=== PATIENT | male | born 1970 | race Caucasian/White ===

== ENCOUNTER 2018-12-17 14:43 | Emergency (ER) | payer MEDICARE, OTHER ==
[~2018-12-17] VITALS: Ht 188 cm; Wt 80.0 kg
[~2018-12-17 14:43] MED LIST: ATEN50TA PO; BUPR150T18 PO; LISI30TA47 PO; METF-480 PO; OLAN10VI3 IM; OLAN5TAB5 PO; PIOG30TA71 PO; PROLIX5 PO; [UNRECOGNIZED DRUG - CODE] PO
[2018-12-17 14:50] VITALS: BP 117/60; PULSE 65; RESP 20; Ht 188 cm; Wt 80.0 kg
--- NOTE | 2018-12-17 15:32 | ERD ---
ER Documentation Chief Complaint Chief Complaint LEFT LEG PAIN HPI Patient is a 48 years old male with PMHx of psychiatric illness presenting to the clinic for left lower extremity erythema and pruritus since yesterday. Patient reports rash is painful. Patient is also reporting of cauliflower like lesion on shaft of penis. Penis denies penile discharge and dysuria. ROS All systems reviewed and are negative except as per history of present illness. Medications Home Meds Active Scripts Permethrin* (Elimite*) 5% Cr, 1 APPLIC TOP ONCE for 7 Days, TUB Prov:EMILY BORREGO PA-C 12/17/18 Imiquimod (Imiquimod) 5% Cream.pack, 1 PACKET TOP BID for 14 Days, #1 PACKET Apply twice weekly to afected area. Prov:EMILY BORREGO PA-C 12/17/18 Cephalexin* (Keflex*) 500 Mg Capsule, 500 MG PO QID for 5 Days, CAP Prov:EMILY BORREGO PA-C 12/17/18 Sulfamethoxazole/Trimethoprim* (Bactrim Ds* Tablet) 1 Each Tablet, 1 TAB PO BID for 10 Days, TAB Prov:EMILY BORREGO PA-C 12/17/18 Reported Medications Olanzapine (Zyprexa) 10 Mg Soln, 10 MG IM HS 04/19/13 Fluphenazine Hcl* (Prolixin*) 5 Mg Tab, 10 MG PO BID 04/19/13 Metformin* (Glucophage*) 850 Mg Tablet, 850 MG PO BID 04/19/13 Olanzapine* (Zyprexa*) 5 Mg Tablet, 5 MG PO AM 04/19/13 Bupropion Hcl* (Bupropion Hcl SR*) 150 Mg Tablet.er, 100 MG PO AM 04/19/13 Lisinopril* (Lisinopril*) 30 Mg Tablet, 40 MG PO DAILY 04/19/13 Atenolol* (Atenolol*) 50 Mg Tablet, 50 MG PO AM 04/19/13 Hctz/Lisinopril (Prinzide 20/12.5) 1 Tab Tab, 1 TAB PO AM 04/19/13 Pioglitazone Hcl* (Pioglitazone Hcl*) 30 Mg Tablet, 45 MG PO AM 04/19/13 Allergies Allergies: Coded Allergies: No Known Allergy (Unverified , 04/19/13) PMhx/Soc History of Surgery: No Anesthesia Reaction: No Hx Neurological Disorder: No Hx Respiratory Disorders: No Hx Cardiac Disorders: Yes (htn ) Hx Psychiatric Problems: Yes (psychosis) Hx Miscellaneous Medical Probl: Yes (PSYCHOSIS) Hx Alcohol Use: No Hx Substance Use: No Hx Tobacco Use: No Smoking Status: Never smoker Physical Exam Vitals Vital Signs Date Temp Pulse Resp B/P (MAP) Pulse Ox O2 O2 Flow FiO2 Time Delivery Rate 12/17/18 98.7 65 20 117/60 96 14:50 (79) Physical Exam Const: No acute distress Head: Atraumatic Eyes: Normal Conjunctiva Resp: Clear to auscultation bilaterally Cardio: Regular rate and rhythm, no murmurs Skin: Erythema and induration on left lower extremity with excoriation. No abscess noted. Ext: No cyanosis, or edema Neur: Awake and alert Psych: Normal Mood and Affect Male Genital Exam: Single cauliflower like lesion located at distal shaft. Procedures/MDM Patient was seen and evaluated for left lower extremity rash (most likely cellulitis) and genital lesion (genital warts). Patient is stable and ready for discharge. No further workup required. Patient is stable and ready for discharge. F/U with PCP for STI workup and infectious disease referral. Patient will be discharged with Bactrim DS, Keflex, Aldara, and Permethrin cream (empiric treatment for scabies as RN reports seeing bugs crawling on his skin). Departure Diagnosis: Primary Impression: Cellulitis and abscess of leg Additional Impression: Genital warts Condition: Stable Patient Instructions: Cellulitis, Genital Warts (Condyloma) Referrals: [facility] Additional Instructions: Patient advised to return to the ED immediately for new or worsening symptoms. Patient advised to follow up with primary care provider in the next 24-48 hours. Patient verbalized understanding and agrees with treatment plan and course of action. If patient has no primary care they may follow up with [facility] + [facility] [address] [place] [id number] or [facility] [address] [place] [address] or [facility] [address] [place] [address] EMILY BORREGO PA-C Dec 17, 2018 15:32
[2018-12-17] MEDS ORDERED: CEPH-443 PO (15:38)
[2018-12-17] MEDS ORDERED: SULF1TAB31 PO (15:38)
[2018-12-17] MEDS ORDERED: IMIQ1CRE14 TOP (15:38)
[2018-12-17] MEDS ORDERED: ELIM TOP (15:38)
== END 2018-12-17 15:54 | disposition home or self-care (01) ==
LOC: FTE 14:43
DX: A63.0 Anogenital (venereal) warts (principal); L03.116 Cellulitis of left lower limb; L02.416 Cutaneous abscess of left lower limb; I10 Essential (primary) hypertension
CPT/HCPCS: 99283